=== PATIENT | female | born 1985 | race African-American/Black ===

== ENCOUNTER 2020-05-30 11:29 | Emergency (ER) | payer SELFPAY ==
[~2020-05-30] VITALS: Ht 160 cm; Wt 65.8 kg
[2020-05-30 11:36] VITALS: BP 108/74
--- NOTE | 2020-05-30 11:43 | NUR ---
Patient discharged to home in stable condition. Written and verbal after care instructions given. Patient verbalizes understanding of instruction. Pt ambulatory with a steady gait
== END 2020-05-30 11:48 | disposition home or self-care (01) ==
LOC: ER 11:45
DX: M54.5 Low back pain (principal); Z88.6 Allergy status to analgesic agent; V49.69XA Unspecified car occupant injured in collision with other motor vehicles in traffic accident, initial encounter; Y93.89 Activity, other specified; Y92.413 State road as the place of occurrence of the external cause; Y99.8 Other external cause status

== ENCOUNTER 2020-06-24 12:01 | Emergency (ER) | payer OTHER ==
[~2020-06-24] VITALS: Ht 160 cm; Wt 63.5 kg
[2020-06-24 12:16] VITALS: BP 128/76
--- NOTE | 2020-06-24 12:20 | NUR ---
HEADACHE, NECK, L SHOULDER AND BACK PAIN S/P [facility] 9AM TODAY. PATIENT A/OX4, BREATHING EVEN AND UNLABORED, AMBULATORY WITH STEADY GAIT. NO DISTRESS NOTED.
[2020-06-24] MEDS ORDERED: TRAM50TA2 PO (14:48)
[2020-06-24] MEDS ORDERED: TRAMADOL HCL 50 MG TABLET ONE (14:51)
--- NOTE | 2020-06-24 15:05 | NUR ---
Patient discharged to home in stable condition. Written and verbal after care instructions given. Patient verbalizes understanding of instruction.
[2020-06-24] MEDS ORDERED: TRAMADOL HCL 50 MG TABLET PO ONE (15:30)
== END 2020-06-24 14:58 | disposition home or self-care (01) ==
LOC: ER 12:14
DX: S39.012A Strain of muscle, fascia and tendon of lower back, initial encounter (principal); S70.02XA Contusion of left hip, initial encounter; S49.82XA Other specified injuries of left shoulder and upper arm, initial encounter; S49.81XA Other specified injuries of right shoulder and upper arm, initial encounter; Z88.6 Allergy status to analgesic agent; W01.0XXA Fall on same level from slipping, tripping and stumbling without subsequent striking against object, initial encounter; Y93.89 Activity, other specified; Y92.89 Other specified places as the place of occurrence of the external cause; Y99.8 Other external cause status
CPT/HCPCS: 72050-TC; 72110-TC; 73010-TC; 73030-TC; 73502